=== PATIENT | male | born 1985 | race Caucasian/White ===

== ENCOUNTER 2024-10-25 08:59 | Outpatient (CLI) | payer OTHER, SELFPAY | END 2024-10-25 09:00 | disposition home or self-care (01) | LOC: LKVREF 09:05 | PROVIDERS: PCP Family Medicine; Visit Provider Family Medicine | DX: Z00.00 Encounter for general adult medical examination without abnormal findings (principal); E66.9 Obesity, unspecified; R03.0 Elevated blood-pressure reading, without diagnosis of hypertension; R53.83 Other fatigue; R06.81 Apnea, not elsewhere classified; Z76.89 Persons encountering health services in other specified circumstances | CPT/HCPCS: 80053; 80061; 84443 ==

== ENCOUNTER 2024-11-29 08:48 | Outpatient (CLI) | payer OTHER, SELFPAY ==
--- NOTE | 2024-12-13 08:46 | W.PM.SLEEP ---
Sleep Study Details Details Interpreting Provider: Javad Date of Sleep Study: 11/29/24 Sleep Study Details: STUDY TYPE:? Home unattended ? BMI:? 41 ORDERING PROVIDER:? Javad INDICATION:? Concern about sleep apnea ? SLEEP SUMMARY:? 495 minutes monitored RESPIRATORY SUMMARY:? AHI 16 per rule 1A, 13.3 per CMS guideline Low oxygen 84 0.4% of study oxygen less than 90% Snoring 98.7% PERIODIC LIMB MOVEMENTS OF SLEEP:? Not recorded CARDIAC:? Range 44-87, mean 57.5 beats per minute IMPRESSION:? Moderate obstructive sleep apnea RECOMMENDATION: Treatment options include weight loss (which is recommended), CPAP and dental appliance.
== END 2024-11-29 08:49 | disposition home or self-care (01) ==
LOC: SLEEP 08:50
PROVIDERS: PCP Family Medicine; Visit Provider Otolaryngology
DX: G47.33 Obstructive sleep apnea (adult) (pediatric) (principal)
CPT/HCPCS: 95806